=== PATIENT | female | born 1990 | race Caucasian/White ===

== ENCOUNTER → 2023-07-13 08:40 | Outpatient (REF) | payer BC, SELFPAY | LOC: MRI 3T 08:40 | PROVIDERS: ATTENDING PHYSICIAN Nurse Practitioner Adult Health | DX: R20.0 Anesthesia of skin (principal); G37.9 Demyelinating disease of central nervous system, unspecified; R51.9 Headache, unspecified; R29.898 Other symptoms and signs involving the musculoskeletal system; R29.2 Abnormal reflex; G95.9 Disease of spinal cord, unspecified; Z86.69 Personal history of other diseases of the nervous system and sense organs; R20.9 Unspecified disturbances of skin sensation | CPT/HCPCS: 72158; A9575 ==

== ENCOUNTER → 2023-07-29 19:10 | Outpatient (REF) | payer BC, SELFPAY | LOC: MRI 19:10 | PROVIDERS: ATTENDING PHYSICIAN Nurse Practitioner Adult Health | DX: R20.0 Anesthesia of skin (principal); G37.9 Demyelinating disease of central nervous system, unspecified; R51.9 Headache, unspecified; R29.898 Other symptoms and signs involving the musculoskeletal system; R29.2 Abnormal reflex; G95.9 Disease of spinal cord, unspecified; Z86.69 Personal history of other diseases of the nervous system and sense organs; R20.9 Unspecified disturbances of skin sensation | CPT/HCPCS: 70553; 72156; A9575 ==

== ENCOUNTER → 2023-08-05 19:12 | Outpatient (REF) | payer BC, SELFPAY | LOC: MRI 19:12 | PROVIDERS: ATTENDING PHYSICIAN Nurse Practitioner Adult Health | DX: R20.0 Anesthesia of skin (principal); G37.9 Demyelinating disease of central nervous system, unspecified; R51.9 Headache, unspecified; R29.898 Other symptoms and signs involving the musculoskeletal system; R29.2 Abnormal reflex; G95.9 Disease of spinal cord, unspecified; Z86.69 Personal history of other diseases of the nervous system and sense organs; R20.9 Unspecified disturbances of skin sensation | CPT/HCPCS: 72157; A9575 ==

== ENCOUNTER 2023-09-22 09:11 | Inpatient (IN) | payer BC, SELFPAY ==
[2023-09-22] VITALS (18 sets, daily range): BP systolic 108–164; BP diastolic 65–109; BMI 41.6; BMI 40.3
[2023-09-22] MEDS: ZOFRAN 4 MG IV (03:15)
[2023-09-22] MEDS: NSS 1000 IV (03:16)
[2023-09-22] MEDS: TYLENOL 1000 MG PO (03:27)
[2023-09-22 03:38] LABS: % Basophils 0.3 % (0-2); % Immature Granulocytes 1.7 % (0-0.5); % Lymphocytes 8.1 % (20.5-51.1); % Monocytes 1.7 % (1.7-9.3); % Neutrophils 87.2 % (42.2-75.2); Absolute Basophils 0.1 10^3/uL (0-0.2); Absolute Eosinophils 0.2 10^3/uL (0-0.7); Absolute Immature Granulocytes 0.3 10^3/uL (0-0.05); Absolute Lymphocytes 1.3 10^3/uL (1.2-3.4); Absolute Monocytes 0.3 10^3/uL (0.1-0.6); Hematocrit 44.6 % (37.0-47.0); Hemoglobin 15.2 g/dL (12.0-16.0); Mean Corp Hgb Conc. 34.1 g/dL (33.0-37.0); Mean Corpuscular Hgb 29.8 pg (27.0-31.0); Mean Corpuscular Volume 87.5 fL (81.0-99.0); Mean Platelet Volume 9.7 fL (7.4-10.4); Nucleated Red Blood Cells % 0 %; Platelet Count 249 10^3/uL (130-400); Red Cell Dist. Width 11.9 % (11.5-14.5); White Blood Cell Count 16.1 10^3/uL (4.8-10.8)
[2023-09-22 03:50] LABS: HCG, Serum Qualitative Screen Negative
[2023-09-22 03:56] LABS: ALT (SGPT) 26 U/L (0-35); AST (SGOT) 22 U/L (14-36); Albumin 4.2 g/dl (3.5-5.0); Alkaline Phosphatase 95 U/L (38-126); Blood Urea Nitrogen 15 mg/dl (7-17); Calcium 9.2 mg/dl (8.4-10.2); Carbon Dioxide 28 mmol/L (22-30); Chloride 99 mmol/L (98-107); Estimated Creatinine Clearance 99 ml/min; Glucose 110 mg/dl (70-99); Lipase 368 U/L (23-300); Potassium 4.1 mmol/L (3.5-5.1); Sodium 134 mmol/L (135-145); Total Bilirubin 0.5 mg/dl (0.2-1.3); Total Protein 7.1 g/dl (6.3-8.2); eGFR > 60.00
[2023-09-22 04:01] LABS: COVID-19 Antigen Negative (Negative)
--- NOTE | 2023-09-22 04:05 | ED.GENMED ---
History of Present Illness
<ARABELLA Rivas - Last Filed: 09/22/23 05:37>
General
Chief Complaint: Fever
Time Seen by Provider: 09/22/23 03:51
Travel History
Have you had any contact with someone who has COVID-19?: No
Do you have any symptoms of coronavirus? Fever > 100 degrees, chills, cough, shortness of breath, sore throat, loss of taste or smell, muscle aches, or headache?: No
History of Present Illness
History of Present Illness:
Pt is a 33 year old female with a PMHx of endometriosis and optic neuritis who was recently diagnosed with MS and is presenting for diffuse joint pains in her neck, back, and shoulders, headache, and N/V. Patient states her pains began after she
started a 5 day prednisone taper which she just finished. She had her first injection of Kesimpta (ofatumumab) this evening for MS. She reports her pains and headache became much worse around midnight and she then began vomiting. She rates the joint
pain going from a 5/10 to an 8/10 in severity. She states she threw up 'many times' prior to receiving Zofran here. She reports it was yellow in color. Pt denies abdominal pain, fevers, chills, chest pain, SOB, cough, sore throat, dysuria, or
diplopia. She states she had [employer] for dinner.
<Hernando Harrell DO - Last Filed: 09/22/23 07:42>
General
Source: patient
Past History
<ARABELLA Rivas - Last Filed: 09/22/23 05:37>
Past History
ED Past Medical History: Other (Endometriosis Pre-eclampsia)
ED Past Surgical History: (11/17/18), Gynecological (laparoscopy hx of endometriosis) and Tonsilectomy
Social History
Tobacco: Non-smoker
Alcohol: Occasional
Personal:
Living: with family
Employment: Employed
Family History
Family History: Negative Early CAD
Review of Systems
<ARABELLA Rivas - Last Filed: 09/22/23 05:37>
Review of Systems
All Other Systems: Not applicable
Constitutional: Reports no symptoms
EENT: Reports no symptoms
Respiratory: Reports no symptoms
Cardiac: Reports no symptoms
ABD/GI: Reports nausea and vomiting
: Reports no symptoms
Musculoskeletal: Reports no symptoms
Skin: Reports no symptoms
Neurological: Reports no symptoms
Endocrine: Reports no symptoms
Hematologic/Lymphatic: Reports no symptoms
Psychiatric: Reports no symptoms
Phy Exam
<ARABELLA Rivas - Last Filed: 09/22/23 05:37>
General Physical Exam
General Presentation: mild distress
General age: appears stated age
General Skin: warm and dry
General Habitus: obese
General Mental: alert
General Hydration: dry mucous membranes
ENT Exam
ENT Exam: pharynx normal, neck supple and normocephalic
Eye Exam
Eye Exam: PERRL and other (conjunctivitis)
Cardiovascular Exam
Cardiovascular Exam: no edema, no murmur, normal peripheral pulses and tachycardia
Pulmonary Exam
Pulmonary Exam: lungs clear, no respiratory distress, no rales, no crackles, no rhonchi, no wheezing and no cough
Gastrointestinal Exam
Gastrointestinal Exam: normal bowel sounds, soft, non distended, guarding (RUQ) and tender (RUQ)
Palpation: right upper quadrant: Severe tenderness
Neurological Exam
Neurological Exam: alert and oriented x3
Musculoskeletal Exam
Musculoskeletal Exam: full ROM, no edema and back tenderness (and neck)
Skin Exam
Skin Exam: normal color and warm/dry
Psychiatric Exam
Psychiatric Exam: normal mood/affect
Course
<ST RobVT - Last Filed: 09/22/23 05:37>
Orders/Labs/Results
Orders:
Orders
09/22/23 03:00
Electrocardiogram (*1) Urgent
Reason for Study: Bradycardia / Tachycardia
EKG- Treatment ONCE
09/22/23 03:04
CXR2 [CR Chest - 2 Views ] Urgent
Comment:
Reason For Exam: fever
09/22/23 03:07
Acetaminophen [Tylenol] 1,000 mg PO NOW STA
09/22/23 03:08
0.9% Sodium Chloride 1000 ml [Nss] 1,000 ml IV BOLUS
09/22/23 03:09
Ondansetron Injectable [Zofran] 4 mg IV NOW STA
09/22/23 03:14
Test Result ONCE
09/22/23 03:24
CMP [Comprehensive Metabolic Panel] Urgent
COVID-19 Antigen Urgent
Source: Nasal Swab
Complete Blood Count/With Diff Urgent
HCG, Serum Qualitative Screen Urgent
Lipase Urgent
Influenza A+B Rapid Molecular Urgent
FRANCK Source: Nasal Swab
Specimen Description:
09/22/23 04:39
Ibuprofen [Motrin] 800 mg PO NOW STA
09/22/23 04:50
Urinalysis Reflex To Culture Urgent
Date Specimen was Collected: 09/22/23
Time Specimen was Collected: 04:47
09/22/23 05:06
US Abdomen Complete/Upper Urgent
Comment:
Reason For Exam: RUQ pain, nausea and vomiting
Abnormal Lab Results
09/22/23
03:24
WBC 16.1 H 10^3/uL
(4.8-10.8)
Abs Immat Gran (auto) 0.3 H 10^3/uL
(0-0.05)
Absolute Neuts (auto) 14.0 H 10^3/uL
(1.4-6.5)
Immature Gran % 1.7 H %
(0-0.5)
Neutrophils % 87.2 H %
(42.2-75.2)
Lymphocytes % 8.1 L %
(20.5-51.1)
Sodium 134 L mmol/L
(135-145)
Glucose 110 H mg/dl
(70-99)
Lipase 368 H U/L
(23-300)
09/22/23 03:24
09/22/23 03:24
Vital Signs
Initial and Last Documented VS:
Initial Vital Signs
Temp Pulse Resp BP Pulse Ox
98.2 F 162 20 164/109 96
09/22/23 02:42 09/22/23 02:42 09/22/23 02:42 09/22/23 02:42 09/22/23 02:42
Last Documented Vital Signs
Temp Pulse Resp BP Pulse Ox
99.3 F 101 18 131/82 94
09/22/23 06:30 09/22/23 07:00 09/22/23 05:00 09/22/23 07:00 09/22/23 07:00
<Hernando Harrell, DO - Last Filed: 09/22/23 07:42>
Orders/Labs/Results
Orders:
Orders
09/22/23 03:00
Electrocardiogram (*1) Urgent
Reason for Study: Bradycardia / Tachycardia
EKG- Treatment ONCE
09/22/23 03:04
CXR2 [CR Chest - 2 Views ] Urgent
Comment:
Reason For Exam: fever
09/22/23 03:07
Acetaminophen [Tylenol] 1,000 mg PO NOW STA
09/22/23 03:08
0.9% Sodium Chloride 1000 ml [Nss] 1,000 ml IV BOLUS
09/22/23 03:09
Ondansetron Injectable [Zofran] 4 mg IV NOW STA
09/22/23 03:14
Test Result ONCE
09/22/23 03:24
CMP [Comprehensive Metabolic Panel] Urgent
COVID-19 Antigen Urgent
Source: Nasal Swab
Complete Blood Count/With Diff Urgent
HCG, Serum Qualitative Screen Urgent
Lipase Urgent
Influenza A+B Rapid Molecular Urgent
FRANCK Source: Nasal Swab
Specimen Description:
09/22/23 04:39
Ibuprofen [Motrin] 800 mg PO NOW STA
09/22/23 04:50
Urinalysis Reflex To Culture Urgent
Date Specimen was Collected: 09/22/23
Time Specimen was Collected: 04:47
09/22/23 05:06
US Abdomen Complete/Upper Urgent
Comment:
Reason For Exam: RUQ pain, nausea and vomiting
Abnormal Lab Results
09/22/23
03:24
WBC 16.1 H 10^3/uL
(4.8-10.8)
Abs Immat Gran (auto) 0.3 H 10^3/uL
(0-0.05)
Absolute Neuts (auto) 14.0 H 10^3/uL
(1.4-6.5)
Immature Gran % 1.7 H %
(0-0.5)
Neutrophils % 87.2 H %
(42.2-75.2)
Lymphocytes % 8.1 L %
(20.5-51.1)
Sodium 134 L mmol/L
(135-145)
Glucose 110 H mg/dl
(70-99)
Lipase 368 H U/L
(23-300)
09/22/23 03:24
09/22/23 03:24
Vital Signs
Initial and Last Documented VS:
Initial Vital Signs
Temp Pulse Resp BP Pulse Ox
98.2 F 162 20 164/109 96
09/22/23 02:42 09/22/23 02:42 09/22/23 02:42 09/22/23 02:42 09/22/23 02:42
Last Documented Vital Signs
Temp Pulse Resp BP Pulse Ox
99.3 F 101 18 131/82 94
09/22/23 06:30 09/22/23 07:00 09/22/23 05:00 09/22/23 07:00 09/22/23 07:00
<ARABELLA Rivas - Last Filed: 09/22/23 05:37>
MDM/Problems Addressed
Differential Diagnosis Includes:
pancreatitis, cholecystitis, drug reaction, hepatitis, gastroenteritis, influenza
MDM/Problems Addressed:
Joint pain and nausea/vomiting
Chronic conditions affecting care: Other (MS)
<ARABELLA Rivas - Last Filed: 09/22/23 05:37>
*Pulse Oximetry
Patient hypoxic: no
*Critical Care Note
Total Time (30-74mins, 75-104mins- exclusive of procedures): Not Applicable
ED Attending Note
<ARABELLA Rivas - Last Filed: 09/22/23 05:37>
-
Portions of this chart may have been created with voice recognition software.� Occasional wrong word or��sound alike� substitutions may have occurred due to the inherent limitations of voice recognition software.
<Hernando Harrell DO - Last Filed: 09/22/23 07:42>
ED Attending Note
Patient seen and examined by attending physician: Yes
I performed the substantive portion of visit, reviewed & personally made and approve the management plan that is documented in note by myself or MIRIAN.: Yes
ED Attending Note:
Pleasant 33-year-old female who presents with abdominal pain. She started a new medication for her MS (kesimpta). She has been having nausea and vomiting. She vomited many times prior to receiving Zofran. Patient reports right upper quadrant
abdominal pain. Patient ate [employer] for dinner. Patient was seen in conjunction with the PA student. I have reviewed and agree with the history and treatment plan presented. On my independent physical exam, patient is awake, alert, and
oriented x3 resting comfortably on the bed. Heart is regular rate and rhythm. Lungs are clear to auscultation bilaterally with no wheezes rales or rhonchi. Abdomen is soft with guarding in the right upper quadrant. Good bowel sounds x 4
quadrants. Moves all 4 extremities.
Patient still feeling pain in the right upper quadrant. She received multiple doses of pain medications. She will be brought into the hospital for further evaluation.
Discharge Plan
Departure
Patient Disposition: Admit
Date of Disposition: 09/22/23
Time of Disposition: 07:41
Admit to: Med/Surg
Presentation/result/management discussed w/ accepting MD/DO: Hospitalist
Patient with high blood pressure during this ER visit?: No
Covid-19: Negative COVID-19
Discharge Problem:
Abdominal pain
Prescriptions:
No Action
escitalopram oxalate [Lexapro] 20 mg Tablet
20 mg PO DAILY
Kesimpta Pen 20 mg/0.4 mL Pen Injector
20 mg SC QWEEK
Referrals:
Opal Walton CRNP [Family Provider] -
Interventions
Interventions:
*Risk Screen - Suicide Last Done: 09/22/23 02:42
*General Assessment Last Done: 09/22/23 02:42
*Neglect/Abuse Screening Last Done: 09/22/23 02:42
ED- Fall Risk Assessment Last Done: 09/22/23 02:42
*ED COVID-19 Vaccine History Last Done: 09/22/23 02:42
ED-Skin Assessment Last Done: 09/22/23 06:20
ED- Neurological Assessment Last Done: 09/22/23 06:20
Discharge Date and Time
Print Language: ICELANDIC
[2023-09-22] MEDS: MOTRIN 800 MG PO (04:42)
[2023-09-22 05:07] LABS: Urine Albumin Negative (Neg - Trace); Urine Bilirubin Negative (Negative); Urine Character Clear (Clear); Urine Color Yellow; Urine Glucose Negative (Negative); Urine Ketone Negative (Negative); Urine Leukocyte Negative (Negative); Urine Nitrite Negative (Negative); Urine Occult Blood Negative (Negative); Urine Urobilinogen Negative (Neg - 1+)
[2023-09-22] MEDS: OMNIPAQUE 50 ML PO (09:04)
[2023-09-22] MEDS: ZOSYN 50 IV ×3 (09:15→21:23)
[2023-09-22] MEDS: VANCOCIN 540 MG IV (09:41)
[2023-09-22 10:20] LABS: Urine Albumin Negative (Neg - Trace); Urine Bilirubin Negative (Negative); Urine Character Clear (Clear); Urine Color Yellow; Urine Glucose Negative (Negative); Urine Ketone Negative (Negative); Urine Leukocyte Negative (Negative); Urine Nitrite Negative (Negative); Urine Occult Blood Negative (Negative); Urine Urobilinogen Negative (Neg - 1+); Urine pH 6.5 (5.0-9.0)
[2023-09-22] MEDS: TYLENOL 650 MG PO ×2 (13:08→19:29)
--- NOTE | 2023-09-22 13:40 | PHA.VAN.IN ---
Assessment
- Assessment
Renal Function: Appears similar to baseline
Concomitant Antimicrobials: piperacillin/tazobactam
AUC Dosing Plan
- Dosing Variables
Dosing Weight (kg): 103
Dosing CrCl (ml/min): 99
Vd coefficient (L/kg): 0.7
- Empiric Dosing
Initial / Loading Dose: 2000mg - 09/12 09:41
Maintenance Regimen: Vanc 1250mg Q12H starting at 1800
Estimated AUC (mcg*h/mL): 488
Estimated Peak (mcg*h/mL): 31.3
Estimated Trough (mcg/ml): 12.1
Estimated Half Life (H): 8
- Monitoring
No levels ordered at this time: consider levels in next few days
Pharmacokinetics Vancomycin I
- -
Patient Age: 33
Patient Sex: Female
Vancomycin Day #: 1
Indication: Gi / Intra-Abdominal
Requesting Provider: Dr. Lewis
Pertinent Antimicrobial Allergies:
sulfonamide antibiotics - hives
Height / Weight:
Height 5 ft 2 in
Actual Weight 103 kg
Pertinent Past Medical History: BMI ~41.5, MS
- Vital Signs / Lab Results
Temp Pulse Resp BP Pulse Ox
99.3 F 84 18 121/74 96
09/22/23 06:30 09/22/23 13:02 09/22/23 05:00 09/22/23 13:02 09/22/23 13:02
Lab Results - Hematology
09/22/23
03:24
WBC 16.1 H
Lab Results - Chemistry
09/22/23
03:24
BUN 15
Creatinine 0.9
Estimated Creat Clear 99
Albumin 4.2
Lab Results - Urine
09/22/23 09/22/23
04:50 09:50
Urine Nitrite (Reflex) Negative Negative
Leukocyte Esterase Rfl Negative Negative
Microbiology Results
09/22/23 03:24 Influenza Types A & B (DOM) - Final
Nasal Swab Negative for Influenza A & B, NAAT
Negative results must be combined with clinical observations
and patient history.
Nucleic Acid Amplification test (NAAT)performed on the
[employer] platform.
--- NOTE | 2023-09-22 14:51 | HPS.HSE ---
Addendum entered and electronically signed by Martir Lewis MD 09/22/23 15:07:
please no morphine/analog due to HIDA scan; use NSAIDS if needed
Original Note:
Family Physician
-
Family Physician: DARYA Nails
Chief Complaint
-
Nausea, vomiting, diffuse pain
History of Present Illness
33-year-old female with past medical history of endometriosis, optic neuritis, recent diagnosis of MS with completion of stress show steroids for 5 days diet, was completed 2 days ago and recently had first dose of Kesimpta (ofatumumab) now presents
for nausea, vomiting along with diffuse pain and headache. Also had joint pain as well. Patient had of 102 Fahrenheit fever upon admission, normotensive, pulse 129. Patient had Mackay's sign positive, tender right upper quadrant. Abdominal CT as
well as abdominal ultrasound unremarkable. Thus far flu, COVID-negative. White count 16.1, sodium 134, lipase 368, UA negative.
Medical History
Past Medical History
Past Medical History: Reports Other
Additional Past Medical History:
Multiple sclerosis, optic neuritis, endometriosis
Past Surgical History: Reports Other
Additional Past Surgical History:
(11/17/18), Gynecological (laparoscopy hx of endometriosis) and Tonsilectomy
Social History
Tobacco: Non-smoker
Alcohol: Occasional
Drug: None
Personal:
Living: With Family
Employment: Employed
Family History
Family History: Not pertinent
Allergies / Home Medications
Allergies reflects when Allergies were last updated in [facility].
Home Medications with original date entered in [facility]
Allergy/Medication List:
Allergies
Allergy/AdvReac Type Severity Reaction Status Date / Time
Sulfa (Sulfonamide Allergy Hives Verified 09/22/23 02:42
Antibiotics)
Home Medications
ergocalciferol (vitamin D2) 1,250 mcg (50,000 unit) capsule 1,250 mcg PO MOWEFR 09/22/23
escitalopram oxalate 20 mg tablet (Lexapro) 20 mg PO HS 09/22/23
ofatumumab 20 mg/0.4 mL subcutaneous pen injector (Kesimpta Pen) 20 mg SC TU 09/22/23
Review of Systems
-
History Source: Patient
A 12 point ROS was completed and negative except as noted: Yes
Physical Exam
Vital Signs
Vital Signs
Temp Pulse Resp BP Pulse Ox
99.3 F 84 18 121/74 96
09/22/23 06:30 09/22/23 13:02 09/22/23 05:00 09/22/23 13:02 09/22/23 13:02
Physical Exam
General: Well Developed and Well Nourished
HEENT: NormoCephalic
Respiratory: Clear
Cardiac: S1/S2 and Regular Rhythm
GI: Tender (Right upper quadrant)
Musculoskeletal: No Clubbing
Skin: Warm
Neuro: Awake, Alert, Oriented and AO x 3
Hematologic/Lymphatic: No Lymphadenopathy
Psych: Calm
Laboratory Results
-
09/22/23 03:24
09/22/23 03:24
Laboratory Results
Total Bilirubin 0.5 mg/dl (0.2-1.3) 09/22/23 03:24
AST 22 U/L (14-36) 09/22/23 03:24
ALT 26 U/L (0-35) 09/22/23 03:24
Alkaline Phosphatase 95 U/L (38-126) 09/22/23 03:24
Lipase 368 U/L (23-300) H 09/22/23 03:24
Data Reviewed
-
CT Scan: Image Personally Visualized and interpreted and Report Reviewed by me
Ultrasound: Report Reviewed by me
Lab Data: Labs Reviewed by me
Impression/Plan
-
IMPRESSION:
33-year-old recent history of multiple sclerosis status post stress of steroids and first dose of Kesimpta now presents for generalized pain, nausea, vomiting, right upper quadrant tenderness. Temperature noted to be 102
PLAN:
#Sepsis
# Unclear source, possibly viral, medical interaction with recent multiple sclerosis immunotherapy versus cholecystitis
� Imaging unremarkable although very tender right upper quadrant
� Follow-up HIDA scan
� Follow-up blood cultures
� Continue empiric antibiotics with vancomycin, Zosyn
�follow-up MRSA swab
� Follow-up blood cultures
� Flu, COVID-negative
� Monitor fever curve, white count
�IVF as needed
� If no obvious source, engage neurology for immunotherapy as possible etiology of symptoms
-NPO for now
#Hyponatremia
� Mild
�monitor with resuscitation
#DVT prophylaxis
� HSQ
[2023-09-22] MEDS: HEPARIN 5000 UNITS SC ×2 (16:34→23:45)
--- NOTE | 2023-09-22 17:00 | PTCARENOTE ---
Received patient from ED into room 2139. Patient AAOX3, VSS, ambulatory in room; patient states recent diagnosis of MS, N/V and headache began after taking first dose of new medication for MS last night. Patient states intermittent headaches r/t MS
diagnosis; PRN tylenol given in ED, one time dose of IV toradol ordered by MD and administered by this RN for JAIME pain rated 5/10. Patient NPO, states nausea improving throughout day after IV zofran given in ED, denies any nausea at this time.
Patient states RUQ pain rated 10/10 upon deep palpation, denies any pain at rest. Patient oriented to room and call foss, states no concerns at this time.
[2023-09-22] MEDS: VANCOCIN 275 MG IV (17:36)
[2023-09-22] MEDS: TORADOL 15 MG IV (17:36)
[2023-09-22] MEDS: LEXAPRO 20 MG PO (21:22)
[2023-09-23 03:22] VITALS: BP 126/76
[2023-09-23] MEDS: ZOSYN 50 IV ×4 (04:34→22:21)
[2023-09-23] MEDS: VANCOCIN 275 MG IV ×2 (05:32→18:29)
[2023-09-23 06:04] LABS: Hematocrit 41.9 % (37.0-47.0); Hemoglobin 14.2 g/dL (12.0-16.0); Mean Corp Hgb Conc. 33.9 g/dL (33.0-37.0); Mean Corpuscular Hgb 30.1 pg (27.0-31.0); Mean Corpuscular Volume 88.8 fL (81.0-99.0); Platelet Count 246 10^3/uL (130-400); Red Blood Cell Count 4.72 10^6/uL (4.20-5.40); Red Cell Dist. Width 12.4 % (11.5-14.5); White Blood Cell Count 8.4 10^3/uL (4.8-10.8)
[2023-09-23 06:49] LABS: ALT (SGPT) 23 U/L (0-35); AST (SGOT) 24 U/L (14-36); Albumin 3.6 g/dl (3.5-5.0); Alkaline Phosphatase 77 U/L (38-126); Blood Urea Nitrogen 13 mg/dl (7-17); Calcium 8.7 mg/dl (8.4-10.2); Carbon Dioxide 25 mmol/L (22-30); Chloride 101 mmol/L (98-107); Estimated Creatinine Clearance > 125 ml/min; Glucose 82 mg/dl (70-99); Potassium 4.1 mmol/L (3.5-5.1); Sodium 133 mmol/L (135-145); Total Bilirubin 0.8 mg/dl (0.2-1.3); Total Protein 6.3 g/dl (6.3-8.2); eGFR > 60.00
[2023-09-23 07:15] VITALS: BP 119/75
--- NOTE | 2023-09-23 08:38 | PHA.VAN.FU ---
Vancomycin Assessment / Plan
- Assessment
Renal Function: Stable
WBC's are: Trending Down
In the past 24 hrs, patient has been: Febrile
Concomitant Antimicrobials: piperacillin/tazobactam
- Dosing Plan
Continue: Vanc 1250mg Q12H
- Monitoring Plan
No level(s) ordered at this time: consider levels in next few days
- Follow Up
Pharmacy will continue to follow.
Vancomycin Follow UP
- -
Patient Age: 33
Patient Sex: Female
Vancomycin Day #: 2
Indication: Gi / Intra-Abdominal
Requesting Provider: Dr. Lewis
Pertinent Antimicrobial Allergies:
sulfonamide antibiotics - hives
Height / Weight:
Height 5 ft 2 in
Actual Weight 99.79 kg
Pertinent Past Medical History: BMI ~41.5, MS
- Vital Signs / Lab Results
Temp Pulse Resp BP Pulse Ox
98.1 F 80 14 119/75 97
09/23/23 07:15 09/23/23 07:15 09/23/23 07:15 09/23/23 07:15 09/23/23 07:15
Lab Results - Hematology
09/22/23 09/23/23
03:24 05:01
WBC 16.1 H 8.4
Lab Results - Chemistry
09/22/23 09/23/23
03:24 05:01
BUN 15 13
Creatinine 0.9 0.7
Estimated Creat Clear 99 > 125
Albumin 4.2 3.6
Lab Results - Urine
09/22/23
09:50
Urine Nitrite (Reflex) Negative
Leukocyte Esterase Rfl Negative
Microbiology Results
09/22/23 09:06 Blood Culture - Preliminary
Blood/Venous Positive culture in progress
Gram Stain - Final
09/22/23 09:06 Blood Culture - Preliminary
Blood/Venous Positive culture in progress
Gram Stain - Final
09/22/23 03:24 Influenza Types A & B (DOM) - Final
Nasal Swab Negative for Influenza A & B, NAAT
Negative results must be combined with clinical observations
and patient history.
Nucleic Acid Amplification test (NAAT)performed on the
[employer] platform.
--- NOTE | 2023-09-23 09:16 | PTCARENOTE ---
pt down for Hida scan this AM to nuclear medicine at 0805. pt still not back to floor. 0800 medications to be given when patient returns to the floor. pt is a self within the room and will be going for an echo this shift as well.
[2023-09-23] MEDS: HEPARIN 5000 UNITS SC ×2 (10:09→23:15)
[2023-09-23 11:09] VITALS: BP 111/74
--- NOTE | 2023-09-23 13:16 | PN.CDI ---
CDI
- -
CDI:
Physician Documentation Request
Admit Date: 09/22/23 09:11
Dear Doctor Joshua,
Please review the following and provide your response in the progress notes.
Clinical Indicators:
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
#...BMI >40. 33 y/o female admitted sepsis.
#CBW (09/21) 220lb BMI 40.2 morbid obesity.
Please provide an associated diagnosis related to the BMI, such as:
BMI > 40, obesity
BMI is not significant
Other(please specify)
BMI > or = to 40
Overweight
Obesity:
Due to excess calories
Drug induced
Due to other cause
Severe or morbid obesity:
With alveolar hypoventilation (Obesity hypoventilation syndrome)
Without alveolar hypoventilation
Use of terms such as suspected, likely, concern for, or probable (associated with a specific diagnosis that is being evaluated, monitored, or treated as if it exists) are acceptable and can be coded in the inpatient setting, when documented at the
time of discharge.
Thank you,
Grazyna Shepard RN BSN CCDS
CDI Specialist
please contact via tiger text
Please use your independent medical judgment in providing your response.
--- NOTE | 2023-09-23 13:25 | W.PN.HOSP.TC ---
Addendum entered and electronically signed by Martir Lewis MD 09/23/23 15:50:
BMI > 40, obesity
Original Note:
Today's Communication/Plan
-
repeat blood cultures, f/u final cultures
ECHO
abx
Assessment / Plan
Assessment / Plan
General: Well Developed and Well Nourished
HEENT: NormoCephalic
Respiratory: Clear
Cardiac: S1/S2 and Regular Rhythm
GI: Tender (Right upper quadrant improved from yest)
Musculoskeletal: No Clubbing
Skin: Warm
Neuro: Awake, Alert, Oriented and AO x 3
Hematologic/Lymphatic: No Lymphadenopathy
Psych: Calm
IMPRESSION:
33-year-old recent history of multiple sclerosis status post stress of steroids and first dose of Kesimpta now presents for generalized pain, nausea, vomiting, right upper quadrant tenderness. Temperature noted to be 102
PLAN:
#Sepsis
#?Bacteremia
# Unclear source, possibly viral, although now 2 sets of blood culture positive, indicative of ?bacteremia; other causes remain medical interaction with recent multiple sclerosis immunotherapy
� Imaging unremarkable although very tender right upper quadrant
� HIDA scan: negative
� Follow-up repeat and final blood cultures
� Continue empiric antibiotics with vancomycin, Zosyn
�follow-up MRSA swab
-ECHO
� Monitor fever curve, white count
�IVF as needed
� If no obvious source, engage neurology for immunotherapy as possible etiology of symptoms
-can advance diet
#Hyponatremia
� Mild
�monitor with resuscitation
#DVT prophylaxis
� HSQ
Total time spent on today's encounter was 50 minutes which included time spent in counseling the patient/family regarding diagnosis and treatment plan as listed above, goals of care, and symptom management. Case was discussed with nursing staff,
specialists, and care coordinators/case management. All labs and imaging personally reviewed by me. Remainder the time spent in detailed review of previous records, lab data, imaging, and other medical provider documentation.
Anticipated Discharge: 24 - 48 hours
Subjective/Interval History
-
Date of Service: September 23, 2023
Feel better today
Objective Data
-
Labs:
Laboratory Results
09/23/23
05:01
WBC 8.4
Hgb 14.2
Hct 41.9
Plt Count 246
Sodium 133 L
Potassium 4.1
Chloride 101
Carbon Dioxide 25
BUN 13
Creatinine 0.7
Glucose 82
Calcium 8.7
Total Bilirubin 0.8
AST 24
ALT 23
Alkaline Phosphatase 77
Vital Signs:
Vital Signs
Temp Pulse Resp BP Pulse Ox
98.5 F 85 14 111/74 97
09/23/23 11:09 09/23/23 11:09 09/23/23 11:09 09/23/23 11:09 09/23/23 11:09
I&O
09/22/23 09/23/23 09/24/23
06:59 06:59 06:59
Intake Total 1000 / 1000 830 / 830
Output Total 0 / 0
Balance 1000 / 1000 830 / 830
Review of Systems
-
History Source: Patient
All other systems: Not reviewed unless documented
Data Reviewed
-
Diagnostic Radiology: Image personally visualized and interpreted and Report Reviewed by me
CT Scan: Image personally visualized and interpreted and Report Reviewed by me
Medical Tests (Nuc Med, Echo etc): Image personally visualized and interpreted and Report Reviewed by me
Labs: Labs Reviewed by me
[2023-09-23 15:44] VITALS: BP 132/83
--- NOTE | 2023-09-23 15:45 | CM ---
Reviewed the chart notes and spoke with the patient at the beside. The patient resides with her spouse and twin four year old boys in a two story home with two steps to enter. The patient reports no DME/VN/SNF. The patient confirmed her pharmacy
of choice is the [facility]. CM continues to be available to patient/family and is monitoring medical plan for needs at discharge.
Plan: Discharge to home when medically stable. No anticipated needs identified at this time.
[2023-09-23] MEDS: TYLENOL 650 MG PO (17:11)
[2023-09-23] MEDS: HEPARIN SC (17:11)
[2023-09-23 19:24] VITALS: BP 140/82
[2023-09-23] MEDS: LEXAPRO 20 MG PO (22:21)
[2023-09-23 23:24] VITALS: BP 125/75
[2023-09-24] VITALS (7 sets, daily range): BP systolic 97–130; BP diastolic 67–86
[2023-09-24] MEDS: ZOSYN 50 IV ×2 (05:02→09:22)
[2023-09-24] MEDS: VANCOCIN 275 MG IV ×2 (05:35→18:08)
[2023-09-24 06:06] LABS: Hematocrit 37.7 % (37.0-47.0); Hemoglobin 13.1 g/dL (12.0-16.0); Mean Corp Hgb Conc. 34.7 g/dL (33.0-37.0); Mean Corpuscular Hgb 30.2 pg (27.0-31.0); Mean Corpuscular Volume 86.9 fL (81.0-99.0); Mean Platelet Volume 9.8 fL (7.4-10.4); Platelet Count 276 10^3/uL (130-400); Red Blood Cell Count 4.34 10^6/uL (4.20-5.40); Red Cell Dist. Width 12.2 % (11.5-14.5); White Blood Cell Count 7.8 10^3/uL (4.8-10.8)
[2023-09-24 06:36] LABS: Blood Urea Nitrogen 13 mg/dl (7-17); Calcium 8.5 mg/dl (8.4-10.2); Carbon Dioxide 24 mmol/L (22-30); Chloride 106 mmol/L (98-107); Estimated Creatinine Clearance > 125 ml/min; Glucose 99 mg/dl (70-99); Potassium 4.2 mmol/L (3.5-5.1); Sodium 134 mmol/L (135-145); eGFR > 60.00
[2023-09-24] MEDS: HEPARIN 5000 UNITS SC ×2 (09:22→23:19)
--- NOTE | 2023-09-24 12:14 | CON.ID ---
Consultation
-
Date/Time Consultation Requested: 09/24/23 8:31
Date/Time Consultation Performed: 09/24/23 12:15
Requesting Provider: Dr Lewis
Performing Provider: Dr Mcintosh
Reason for Consultation: CONS bacteremia, immunosuppression
Chief Complaint / Past History
Chief Complaint
Nausea, vomiting, diffuse pain
History of Present Illness
Ms Patel is a 33 year old female with past medial history notable for recent diagnosis of MS on ofatumumab (anti CD20 in those overexpressing CD20), endometriosis, optic neuritis, class III obesity. She just completed a 5 day course of stress dose
steroids and had first dose of ofatumumab then presented here 09/21 for nausea, vomiting, diffuse pain, headache. Found to be febrile to 102 here. She was started on methylprednisolone 1000 mg IV q24 hrs x5 days; did get vitamin D but no stress
ulcer ppx. Then on wednesday had the first dose of ofatumumab. She felt confused, reported
Since arrival here she has been febrile to 102.0 orally on arrival - subsequently normal Ts, BP has been stable, initially tachycardic to 160s now mostly normal, initially tachypneic to 24 now running in the teens. WBC on arrival 16 now 7.8, hgb
13, plt 276, L shift is noted, cr 0.7, t bili 0.5, ast 22, alt 26, alk phos 95, lipase 368, hcg neg, ua negative, covid ag neg, 09/22 hepatobiliary scan: negative for acute preston, 09/21 ct a/p : No significant peripancreatic inflammation despite
elevated lipase levels. No other acute process in the abdomen or pelvis. 09/21 Abd US: Mild hepatic steatosis, CXR: no acute CP process. Initial blood culture obtained at the same time both with CONS, after these cultures she was started on
vancomycin and zosyn, repeat blood cultures x2 30 minutes apart are no growth to date. Admitting team reported + murphys sign and tender RUQ.
Past History
Additional Past Medical History:
as per hpi
Additional Past Surgical History:
(11/17/18), Gynecological (laparoscopy hx of endometriosis) and Tonsilectomy
Allergy History:
Sulfa (Sulfonamide Antibiotics) Allergy (Verified 09/22/23 02:42)
Hives
Medications Reviewed: Yes
Social History
Tobacco: Non-Smoker
Alcohol: Occasional
Drug: None
Review of Systems
Review of Systems
General: Fever and Chills
All systems: All other systems were reviewed and were negative
Vital Signs
Temp Pulse Resp BP Pulse Ox
98.2 F 101 18 122/83 96
09/24/23 10:50 09/24/23 10:50 09/24/23 10:50 09/24/23 10:50 09/24/23 10:50
Physical Exam
Physical Exam
Constitutional: No Acute Distress and Obese
Cardiovascular: Regular Rate and S1/S2; Negative Murmur or Rub
Pulmonary: Clear and Symmetric; Negative Wheezes, Rales or Rhonchi
Gastrointestinal: Soft, Non Tender, Non Distended and Normal Bowel Sounds
Extremities: Other (previous IV was in the dorsal L hand - no redness, tenderness or cords in either hand or the AC fossas bilaterally)
Skin: Warm and Dry; Negative Rash or Jaundice
Neurological: Awake and Alert
Lab / Diagnostic Study Results
09/24/23 05:48
09/24/23 05:48
Abs Immat Gran (auto) 0.3 10^3/uL (0-0.05) H 09/22/23 03:24
Absolute Neuts (auto) 14.0 10^3/uL (1.4-6.5) H 09/22/23 03:24
Absolute Lymphs (auto) 1.3 10^3/uL (1.2-3.4) 09/22/23 03:24
Absolute Monos (auto) 0.3 10^3/uL (0.1-0.6) 09/22/23 03:24
Absolute Basos (auto) 0.1 10^3/uL (0-0.2) 09/22/23 03:24
Immature Gran % 1.7 % (0-0.5) H 09/22/23 03:24
Neutrophils % 87.2 % (42.2-75.2) H 09/22/23 03:24
Lymphocytes % 8.1 % (20.5-51.1) L 09/22/23 03:24
Monocytes % 1.7 % (1.7-9.3) 09/22/23 03:24
Eosinophils % 1.0 % (0-6) 09/22/23 03:24
Basophils % 0.3 % (0-2) 09/22/23 03:24
Microbiology Results
Micro:
09/23/23 10:47 Blood Culture - Preliminary
Blood/Venous No Growth in 24 hours- Final report to follow
09/22/23 09:06 Blood Culture - Preliminary
Blood/Venous Coagulase neg. staphylococcus
Gram Stain - Final
09/22/23 09:06 Blood Culture - Preliminary
Blood/Venous Coagulase neg. staphylococcus
Gram Stain - Final
09/22/23 18:43 Blood Culture - Preliminary
Blood/Venous No Growth in 24 hours- Final report to follow
09/22/23 18:03 Blood Culture - Preliminary
Blood/Venous No Growth in 24 hours- Final report to follow
09/22/23 09:06 MRSA Screen - Final
Nose No Methicillin Resistant Staphylococcus aureus isolated.
09/23/23 12:24 Blood Culture - Pending
Blood/Venous
09/22/23 03:24 Influenza Types A & B (DOM) - Final
Nasal Swab Negative for Influenza A & B, NAAT
Negative results must be combined with clinical observations
and patient history.
Nucleic Acid Amplification test (NAAT)performed on the
[employer] platform.
Assessment / Plan
Suspected Esophagitis vs gastritis vs medication side effect
Allergy: sulfa - hives
- patients symptoms could be related to resolving esophagitis/gastritis from high dose steroids, she has not tried a PPI yet. She has had an aggressive, appropriate workup for cholecystitis which I agree with, no other visible abdominal pathology
on imaging
- fever, fatigue, nausea are commonly reported adverse effects of ofatumumab, abdominal pain has also been reported
- discussed starting PPI with IM service - as they are in agreement I will start
CONS bacteremia vs pseudobacteremia
- most likely a contaminant
- follow the repeat blood cultures to at least 48 hours on the IV vancomycin - then if negative can stop
- echo normal
- would plan to repeat blood cultures x2 outpatient when she has been off of antibiotics about a week - sooner if needed
--- NOTE | 2023-09-24 13:03 | W.PN.HOSP.TC ---
Today's Communication/Plan
-
ID consulted for assistance/further clarification/source of bacteremia
cont abx - taper as directed by ID
Assessment / Plan
Assessment / Plan
General: Well Developed and Well Nourished
HEENT: NormoCephalic
Respiratory: Clear
Cardiac: S1/S2 and Regular Rhythm
GI: Tender (Right upper quadrant improved from yest)
Musculoskeletal: No Clubbing
Skin: Warm
Neuro: Awake, Alert, Oriented and AO x 3
Hematologic/Lymphatic: No Lymphadenopathy
Psych: Calm
IMPRESSION:
33-year-old recent history of multiple sclerosis status post stress of steroids and first dose of Kesimpta now presents for generalized pain, nausea, vomiting, right upper quadrant tenderness. Temperature noted to be 102
PLAN:
#Sepsis
#?Bacteremia, Coag neg staph aureus
# Unclear source, possibly viral, although now 2 sets of blood culture positive, indicative of ?bacteremia; other causes remain medical interaction with recent multiple sclerosis immunotherapy; patient did have iv line placed x 5 days for IV stress
dose steroids and may be culprit
� Imaging unremarkable although very tender right upper quadrant
� HIDA scan: negative
� Follow-up repeat and final blood cultures
� Continue empiric antibiotics with vancomycin, Zosyn
-ECHO - no sign of endocarditis
-ID consulted for further assistance
� Monitor fever curve, white count
�IVF as needed
-can advance diet
#Hyponatremia
� Mild
�monitor with resuscitation
#DVT prophylaxis
� HSQ
Total time spent on today's encounter was 52 minutes which included time spent in counseling the patient/family regarding diagnosis and treatment plan as listed above, goals of care, and symptom management. Case was discussed with nursing staff,
specialists, and care coordinators/case management. All labs and imaging personally reviewed by me. Remainder the time spent in detailed review of previous records, lab data, imaging, and other medical provider documentation.
Anticipated Discharge: Within 24 hours
Subjective/Interval History
-
Date of Service: September 24, 2023
no acute events; feels much better and tolerates diet well
Objective Data
-
Labs:
Laboratory Results
09/24/23
05:48
WBC 7.8
Hgb 13.1
Hct 37.7
Plt Count 276
Sodium 134 L
Potassium 4.2
Chloride 106
Carbon Dioxide 24
BUN 13
Creatinine 0.7
Glucose 99
Calcium 8.5
Vital Signs:
Vital Signs
Temp Pulse Resp BP Pulse Ox
98.2 F 101 18 122/83 96
09/24/23 10:50 09/24/23 10:50 09/24/23 10:50 09/24/23 10:50 09/24/23 10:50
I&O
09/23/23 09/24/23 09/25/23
06:59 06:59 06:59
Intake Total 830 / 830 2695 / 2695
Output Total 0 / 0
Balance 830 / 830 2695 / 2695
Review of Systems
-
History Source: Patient
All other systems: Not reviewed unless documented
Data Reviewed
-
Diagnostic Radiology: Image personally visualized and interpreted and Report Reviewed by me
CT Scan: Image personally visualized and interpreted and Report Reviewed by me
Medical Tests (Nuc Med, Echo etc): Image personally visualized and interpreted and Report Reviewed by me
Labs: Labs Reviewed by me
--- NOTE | 2023-09-24 14:56 | PHA.VAN.FU ---
Vancomycin Assessment / Plan
- Assessment
Renal Function: Stable
WBC's are: WNL
In the past 24 hrs, patient has been: Afebrile
- Dosing Plan
Continue: Vanc 1250mg Q12H
- Monitoring Plan
No level(s) ordered at this time: consider levels in next few days
- Follow Up
Pharmacy will continue to follow.
Vancomycin Follow UP
- -
Patient Age: 33
Patient Sex: Female
Vancomycin Day #: 3
Indication: Gi / Intra-Abdominal
Requesting Provider: Dr. Lewis / Arnaldo
Pertinent Antimicrobial Allergies:
sulfonamide antibiotics - hives
Height / Weight:
Height 5 ft 2 in
Actual Weight 99.79 kg
Pertinent Past Medical History: BMI ~41.5, MS
- Vital Signs / Lab Results
Temp Pulse Resp BP Pulse Ox
98.2 F 101 18 122/83 96
09/24/23 10:50 09/24/23 10:50 09/24/23 10:50 09/24/23 10:50 09/24/23 10:50
Lab Results - Hematology
09/22/23 09/23/23 09/24/23
03: 05:01 05:48
WBC 16.1 H 8.4 7.8
Lab Results - Chemistry
09/22/23 09/23/23 09/24/23
03: 05:01 05:48
BUN 15 13 13
Creatinine 0.9 0.7 0.7
Estimated Creat Clear 99 > 125 > 125
Albumin 4.2 3.6
Microbiology Results
09/22/23 09:06 Blood Culture - Preliminary
Blood/Venous Coagulase neg. staphylococcus
Gram Stain - Final
09/22/23 09:06 Blood Culture - Preliminary
Blood/Venous Coagulase neg. staphylococcus
Gram Stain - Final
09/23/23 12:24 Blood Culture - Preliminary
Blood/Venous No Growth in 24 hours- Final report to follow
09/23/23 10:47 Blood Culture - Preliminary
Blood/Venous No Growth in 24 hours- Final report to follow
09/22/23 18:43 Blood Culture - Preliminary
Blood/Venous No Growth in 24 hours- Final report to follow
09/22/23 18:03 Blood Culture - Preliminary
Blood/Venous No Growth in 24 hours- Final report to follow
09/22/23 09:06 MRSA Screen - Final
Nose No Methicillin Resistant Staphylococcus aureus isolated.
--- NOTE | 2023-09-24 14:56 | CM ---
Reviewed the chart notes. CM continues to be available to patient/family and is monitoring medical plan for needs at discharge.
Plan: Discharge to home when medically stable.
[2023-09-24] MEDS: HEPARIN SC (15:45)
[2023-09-24] MEDS: PROTONIX 40 MG PO (15:45)
[2023-09-24] MEDS: LEXAPRO 20 MG PO (21:01)
[2023-09-25 03:13] VITALS: BP 114/71
[2023-09-25] MEDS: VANCOCIN 275 MG IV (05:37)
[2023-09-25 07:50] VITALS: BP 124/82
[2023-09-25 08:13] LABS: Hematocrit 39.3 % (37.0-47.0); Hemoglobin 13.6 g/dL (12.0-16.0); Mean Corp Hgb Conc. 34.6 g/dL (33.0-37.0); Mean Corpuscular Hgb 29.9 pg (27.0-31.0); Mean Corpuscular Volume 86.4 fL (81.0-99.0); Mean Platelet Volume 9.5 fL (7.4-10.4); Platelet Count 303 10^3/uL (130-400); Red Blood Cell Count 4.55 10^6/uL (4.20-5.40); Red Cell Dist. Width 12.3 % (11.5-14.5); White Blood Cell Count 9.1 10^3/uL (4.8-10.8)
[2023-09-25] MEDS: PROTONIX 40 MG PO (08:13)
[2023-09-25] MEDS: HEPARIN 5000 UNITS SC (08:13)
[2023-09-25 08:42] LABS: Blood Urea Nitrogen 8 mg/dl (7-17); Calcium 9.3 mg/dl (8.4-10.2); Carbon Dioxide 23 mmol/L (22-30); Chloride 104 mmol/L (98-107); Estimated Creatinine Clearance > 125 ml/min; Glucose 104 mg/dl (70-99); Potassium 4.6 mmol/L (3.5-5.1); Sodium 135 mmol/L (135-145); eGFR > 60.00
[2023-09-25 09:22] LABS: Erythrocyte Sed Rate 26 mm/hour (0-20)
[2023-09-25 11:56] VITALS: BP 123/88
--- NOTE | 2023-09-25 12:00 | CM ---
CM reviewed pt with Dr Lewis- pt ready for dc
Bedside meeting with pt- no dc needs noted
Discharge Disposition- home, no needs- spouse transport
--- NOTE | 2023-09-25 12:05 | W.PN.HOSP.TC ---
Addendum entered and electronically signed by Martir Lewis MD 09/25/23 16:16:
[id number]
Original Note:
Today's Communication/Plan
-
PPI
-Repeat Blood cultures x 2 outpatient in 1 week - f/u pcp/id
Assessment / Plan
Assessment / Plan
General: Well Developed and Well Nourished
HEENT: NormoCephalic
Respiratory: Clear
Cardiac: S1/S2 and Regular Rhythm
GI: Tender (Right upper quadrant improved from yest)
Musculoskeletal: No Clubbing
Skin: Warm
Neuro: Awake, Alert, Oriented and AO x 3
Hematologic/Lymphatic: No Lymphadenopathy
Psych: Calm
IMPRESSION:
33-year-old recent history of multiple sclerosis status post stress of steroids and first dose of Kesimpta now presents for generalized pain, nausea, vomiting, right upper quadrant tenderness. Temperature noted to be 102
PLAN:
#Viral gastroenteritis
#?GERD
-Improved, tolerating diet
-Started on PPI vague abd pain s/p stress dose steroids
#?Bacteremia, Coag neg staph aureus�possibly pseudo bacteremia
� Imaging unremarkable although very tender right upper quadrant
� HIDA scan: negative
� Follow-up repeat and final blood cultures negative
-Repeat Blood cultures x 2 outpatient in 1 week - f/u pcp/id
-appreciate ID recs
-ECHO - no sign of endocarditis
� Monitor fever curve, white count
�IVF as needed
-can advance diet
#Hyponatremia
� Mild
�monitor with resuscitation
-resolved
#DVT prophylaxis
� HSQ
More than 30 minutes spent in discharge including
Final examination of the patient
Summarizing hospital stay
Instructions for continuing care to all relevant caregivers
Preparation of discharge records, prescriptions, and referral forms
Total time spent (35 in minutes):
Anticipated Discharge: Today
Subjective/Interval History
-
Date of Service: September 25, 2023
Feels much better
Objective Data
-
Labs:
Laboratory Results
09/25/23
07:58
WBC 9.1
Hgb 13.6
Hct 39.3
Plt Count 303
Sodium 135
Potassium 4.6
Chloride 104
Carbon Dioxide 23
BUN 8
Creatinine 0.6
Glucose 104 H
Calcium 9.3
Vital Signs:
Vital Signs
Temp Pulse Resp BP Pulse Ox
98.3 F 95 14 123/88 97
09/25/23 11:56 09/25/23 11:56 09/25/23 11:56 09/25/23 11:56 09/25/23 11:56
I&O
09/24/23 09/25/23 09/26/23
06:59 06:59 06:59
Intake Total 2695 / 2695 865 / 865
Balance 2695 / 2695 865 / 865
Review of Systems
-
History Source: Patient
All other systems: Not reviewed unless documented
Data Reviewed
-
Diagnostic Radiology: Image personally visualized and interpreted and Report Reviewed by me
CT Scan: Image personally visualized and interpreted and Report Reviewed by me
Medical Tests (Nuc Med, Echo etc): Image personally visualized and interpreted and Report Reviewed by me
Labs: Labs Reviewed by me
--- NOTE | 2023-09-25 12:09 | W.DS.TRANS ---
DC Summary - [employer]
-
Discharge Instructions:
Discharge Diagnosis/Procedures viral gastroenteritis
?GERD
Bacteremia - S. Epi. - Most likely contaminant
Diet Low Cholesterol,Low Fat
Blood Work Blood cultures in 1 week with PCP/infectious
disease
Instructions:
Stand-Alone Forms:
Changes to Home Medications: Yes
Discharge Medications:
DC Medications w/original date entered in [email or web address]
ergocalciferol (vitamin D2) 1,250 mcg (50,000 unit) capsule 1,250 mcg PO MOWEFR Supplement 09/22/23
escitalopram oxalate 20 mg tablet (Lexapro) 20 mg PO HS Mental Health/Anxiety 09/22/23
ofatumumab 20 mg/0.4 mL subcutaneous pen injector (Kesimpta Pen) 20 mg SC TU nti-CD20 Monoclonal Antibody; Antineoplastic Agent, 09/22/23
pantoprazole 40 mg tablet,delayed release 40 mg PO DAILY 30 days #30 tabs 09/25/23
Home Medication Changes
pantoprazole 40 mg tablet,delayed release 40 mg PO DAILY 30 days #30 tabs 09/25/23
Pending Results: No
--- NOTE | 2023-09-25 13:23 | PTCARENOTE ---
Patient discharged home. This RN removed patient's IV, telemetry pack removed by tech. Discharge medications and instructions reviewed with patient and patient's spouse; both verbalized understanding. Patient dressed and belongings gathered in room
independently, refused wheelchair escort and ambulated down to spouse's car independently.
== END 2023-09-25 13:41 | disposition home or self-care (01) | DRG 872 ==
LOC: 2 NORTH 09:11
PROVIDERS: ADMITTING PHYSICIAN Internal Medicine; CONSULT PHYSICIAN Student in an Organized Health Care Education/Training Program; EMERGENCY PHYSICIAN Student in an Organized Health Care Education/Training Program; FAMILY PHYSICIAN Nurse Practitioner
DX: A41.9 Sepsis, unspecified organism (principal); E87.1 Hypo-osmolality and hyponatremia; Z68.41 Body mass index [BMI] 40.0-44.9, adult; H46.9 Unspecified optic neuritis; A08.4 Viral intestinal infection, unspecified; K21.9 Gastro-esophageal reflux disease without esophagitis; E66.9 Obesity, unspecified; G35 Multiple sclerosis
CPT/HCPCS: 71046; 74177; 76700; 78226; 80048; 80053; 81003; 83690; 84703; 85025; 85027; 85652; 86140; 87040; 87070; 87147; 87150; 87186; 87205; 87502; 87811; 93005; 93306; 96361; 96374; 99285; A9537; Q9967

== ENCOUNTER → 2023-12-21 14:03 | Outpatient (REF) | payer BC, SELFPAY | LOC: HWRAD 14:03 | PROVIDERS: ATTENDING PHYSICIAN Nurse Practitioner | DX: S59.902A Unspecified injury of left elbow, initial encounter (principal) | CPT/HCPCS: 73080 ==

== ENCOUNTER → 2024-06-26 08:53 | Outpatient (REF) | payer BC, SELFPAY | LOC: WDC 08:53 | PROVIDERS: ATTENDING PHYSICIAN Nurse Practitioner Adult Health | DX: R59.0 Localized enlarged lymph nodes (principal); N63.23 Unspecified lump in the left breast, lower outer quadrant | CPT/HCPCS: 76642; 77062; 77066 ==

== ENCOUNTER → 2025-06-11 10:09 | Outpatient (REF) | payer BC, SELFPAY | LOC: HWRAD 10:09 | PROVIDERS: ATTENDING PHYSICIAN Internal Medicine | DX: M79.601 Pain in right arm (principal) | CPT/HCPCS: 73030 ==